=== PATIENT | male | born 1940 | race Caucasian/White ===

== ENCOUNTER → 2019-06-12 | Outpatient (CLI) | payer BC ==
--- NOTE | 2019-06-12 18:49 | REP ---
Right hand series: Four views: History: Contusion of the right hand. Findings: Four views of the right hand demonstrate mild diffuse osteopenia. There is soft tissue swelling about the PIP joint of the ring finger. No fracture is seen. There are moderate osteoarthritic changes at the several DIP and PIP joints including the PIP joint of the ring finger. There is an advanced osteoarthritis at the first carpometacarpal articulation. Some vascular calcification is noted at the wrist. Impression: No fractures seen. Electronically Signed by Kahlil Mae MD 06/12/2019 07:27 P
== END ==
LOC: M WUC 16:33
PROVIDERS: ATTEND Physician Assistant
DX: M85.841 Other specified disorders of bone density and structure, right hand (principal); M19.041 Primary osteoarthritis, right hand; S60.221A Contusion of right hand, initial encounter; X58.XXXA Exposure to other specified factors, initial encounter; Y92.9 Unspecified place or not applicable